=== PATIENT | female | born 1965 | race Caucasian/White ===

== ENCOUNTER → 2020-07-23 | Outpatient (CLI) | payer BC, OTHER ==
[~2020-07-23] MED LIST: BUTALB-ACETAMI1 EACH PO; ZOFRAN4 MG PO
== END ==
LOC: EMI 08:56
DX: G35 Multiple sclerosis (principal); R90.82 White matter disease, unspecified; M50.21 Other cervical disc displacement, high cervical region; M50.322 Other cervical disc degeneration at C5-C6 level
CPT/HCPCS: 70553; 72156; A9577

== ENCOUNTER → 2020-08-23 | Outpatient (CLI) | payer BC, OTHER ==
[2020-08-23 10:35] LABS: RBC (AUTOMATED) 57300 10^6 (0); WBC (AUTOMATED 67 10^3 (0-5)
[2020-08-23 10:36] LABS: RBC (AUTOMATED) 400 10^6 (0); WBC (AUTOMATED 5 10^3 (0-5)
[2020-08-23 10:40] LABS: GLUCOSE,CSF 54 mg/dL (50-80); TOTAL PROTEIN,CSF 41 mg/dL (20-45)
[2020-08-27 14:12] LABS: CSF IGG INDEX 0.5 (0.0-0.7); CSF/SERUM ALB. INDEX 5 (0-8); IMMUNOGLOBULIN G, QN, SERUM 726 mg/dL (586-1602)
[2020-08-28 17:12] LABS: MYELIN BASIC PROTEIN, CSF 3.3 ng/mL (0.0-3.7)
== END ==
LOC: RAD 07:53
PROVIDERS: Nurse Practitioner Family
PROC: 009U3ZX Drainage of Spinal Canal, Percutaneous Approach, Diagnostic (ICD-10-PCS; principal; 2020-08-23)
DX: G35 Multiple sclerosis (principal)
CPT/HCPCS: 82040; 82784; 82945; 83873; 83916; 84157; 87015; 87070; 87116; 87205; 87210; 89051

== ENCOUNTER 2020-08-28 12:27 | Emergency (ER) | payer BC, OTHER ==
[2020-08-28] MEDS ORDERED: ZOFRAN4 MG PO (16:19)
[2020-08-28] MEDS ORDERED: BUTALB-ACETAMI1 EACH PO (16:31)
== END 2020-08-28 16:57 | disposition home or self-care (01) ==
LOC: ER1 12:27
DX: T88.59XA Other complications of anesthesia, initial encounter (principal); G44.40 Drug-induced headache, not elsewhere classified, not intractable; E07.9 Disorder of thyroid, unspecified; Z90.49 Acquired absence of other specified parts of digestive tract; Z90.710 Acquired absence of both cervix and uterus; Y83.8 Other surgical procedures as the cause of abnormal reaction of the patient, or of later complication, without mention of misadventure at the time of the procedure
CPT/HCPCS: 99283; J7030

== ENCOUNTER → 2021-02-17 | Outpatient (CLI) | payer BC | LOC: EMI 09:00 | DX: G35 Multiple sclerosis (principal) | CPT/HCPCS: 70553; A9577 ==